=== PATIENT | male | born 1940 | race Caucasian/White ===

== ENCOUNTER 2025-04-28 12:58 | Emergency (ER) | payer MEDICARE ==
[~2025-04-28] VITALS: Ht 167.6 cm; Wt 61.2 kg
[2025-04-28 13:56] LABS: BASOPHILS % 0.5 % (0.0-1.0); EOSINOPHILS % 1.7 % (0.0-6.0); LYMPHOCYTES % 36.9 % (18.0-39.1); MONOCYTES % 6.8 % (4.4-11.3); NEUTROPHILS % 54.0 % (38.7-80.0); RED CELL DISTRIBUTION WIDTH 13.2 % (11.7-14.4)
[2025-04-28 14:23] LABS: EST GLOMERULAR FILTRATION RATE 52.0 ML/MIN (>=60)
[2025-04-28 16:22] VITALS: PULSE 85; RESP 16; TEMP 98.1; O2SAT 100
[2025-04-28] MEDS ORDERED: MECLIZINE HCL12.5 MG PO (16:34)
== END 2025-04-28 16:40 | disposition home or self-care (01) ==
LOC: ER 13:14
DX: H93.19 Tinnitus, unspecified ear (principal); R42 Dizziness and giddiness; I10 Essential (primary) hypertension; E11.9 Type 2 diabetes mellitus without complications; E78.5 Hyperlipidemia, unspecified
CPT/HCPCS: 36415; 70450; 80053; 85025; 99284